=== PATIENT | male | born 1990 | race Caucasian/White ===

== ENCOUNTER 2017-04-27 12:08 | Emergency (ER) | payer BC ==
[~2017-04-27] VITALS: Ht 177.8 cm; Wt 99.3 kg
[2017-04-27 12:10] VITALS: BP 134/85
--- NOTE | 2017-04-27 12:22 | NUR ---
c/o lower abdominal sharp pain x 5 days ---constipation/watery stools, +nausea seen in [facility] today , instructed to come to ER for poss CT . ; SKIN IS PINK/WARM/DRY; AAOX4 WITH EVEN AND STEADY GAIT; LUNGS CLEAR BL; HR EVEN AND REGULAR; PT DENIES ANY FEVER, CP, SOB, OR COUGH AT THIS TIME; PATIENT STATES PAIN OF 3/10 AT THIS TIME; VSS; PATIENT POSITIONED FOR COMFORT; HOB ELEVATED; BEDRAILS UP X2; BED DOWN. ER MD MADE AWARE OF PT STATUS.
[2017-04-27 13:47] VITALS: BP 130/80
== END 2017-04-27 13:48 | disposition home or self-care (01) ==
LOC: MED 12:08
DX: K57.90 Diverticulosis of intestine, part unspecified, without perforation or abscess without bleeding (principal); K59.00 Constipation, unspecified
CPT/HCPCS: 99284